=== PATIENT | male | born 1965 | race Caucasian/White ===

== ENCOUNTER 2020-05-31 14:38 | Inpatient (IN) | payer MEDICAID ==
[~2020-05-31] VITALS: Ht 172.7 cm; Wt 94.0 kg
[2020-05-31 15:03] LABS: GLUCOSE,POINT OF CARE 105 MG/DL (70-110)
[2020-05-31] MEDS ORDERED: ONDANSETRON HCL 4 MG/2 ML VIAL IVP ONE (15:15)
[2020-05-31] MEDS ORDERED: LORazepam 2 MG/ML VIAL IVP ONE ×2 (15:15→19:45)
[2020-05-31] MEDS ORDERED: SODIUM CHLORIDE 0.9% 1,000 ML IV ONE ×3 (15:15→21:30)
[2020-05-31 16:13] LABS: BASOPHILS % (AUTO) 0.4 % (0.0-2.0); EOSINOPHILS % (AUTO) 0 % (1.0-6.0); HEMATOCRIT 41.2 % (41-53); HEMOGLOBIN 13.9 g/dL (13.5-17.5); LYMPHOCYTES # (AUTO) 0.6 K/uL (1.0-4.8); LYMPHOCYTES % (AUTO) 18.9 % (22.0-44.0); MEAN CORPUSCULAR HEMOGLOBIN 31.8 pg (26.0-34.0); MEAN CORPUSCULAR HGB CONC 33.7 G/dL (31.0-37.0); MEAN CORPUSCULAR VOLUME 94 fL (80-100); MONOCYTES # (AUTO) 0.2 K/uL (0.1-1.0); MONOCYTES % (AUTO) 7.6 % (2.0-9.0); NEUTROPHILS # (AUTO) 2.3 K/uL (1.8-7.7); NEUTROPHILS % (AUTO) 73.1 % (40.0-70.0); RED BLOOD CELL COUNT(AUTO) 4.37 MIL/uL (4.50-5.90); RED CELL DISTRIBUTION WIDTH 14.5 % (11.5-14.5)
[2020-05-31 16:22] LABS: ANION GAP 18 mmol/L (8-16); CALCIUM, TOTAL 9.4 mg/dL (8.8-10.5); CARBON DIOXIDE 20 mmol/L (22-29); CHLORIDE 100 mmol/L (98-107); CREATININE 0.98 mg/dL (0.60-1.30); GLOMERULAR FILTR. RATE CALC > 60 mL/min (>60); GLUCOSE,RANDOM 117 mg/dL (70-110); POTASSIUM 4.7 mmol/L (3.5-5.1); SODIUM SERUM 138 mmol/L (136-145); UREA NITROGEN, BLOOD 16 mg/dL (7-18)
[2020-05-31 16:24] LABS: MAGNESIUM 1.8 mg/dL (1.80-2.40); PHOSPHORUS 3.1 mg/dL (2.5-4.9)
[2020-05-31 16:43] LABS: PLATELET COUNT (AUTO) 55 K/uL (150-450)
[2020-05-31 16:46] LABS: ALANINE AMINOTRANSFERASE 56 U/L (12-78); ALBUMIN 3.7 g/dL (3.4-5.0); ALKALINE PHOSPHATASE 145 U/L (46-116); ASPARTATE AMINOTRANSFERASE 120 U/L (15-37); BILIRUBIN,TOTAL 2.2 mg/dL (0.1-1.0); CREATINE KINASE, TOTAL ONLY 240 U/L (39-308); TOTAL PROTEIN, SERUM 7.6 g/dL (6.4-8.2)
[2020-05-31 16:49] LABS: B-TYPE NATRIURETIC PEPTIDE 28 pg/mL (0-100)
[2020-05-31] MEDS ORDERED: ChlordiazePOXIDE HCL 25 MG CAPSULE PO ONE (17:00)
[2020-05-31] MEDS ORDERED: LevETIRAcetam 1,000 MG in DEXTROSE 5%-WATER 100 ML IV ONE (19:45)
[2020-05-31 19:50] LABS: GLUCOSE,POINT OF CARE 128 MG/DL (70-110)
[2020-05-31] MEDS ORDERED: ONDANSETRON HCL 4 MG/2 ML VIAL IVP PRN ×2 (20:00→21:30)
[2020-05-31] MEDS ORDERED: 0.9% SODIUM CHLORIDE 10 ML SYRINGE IVP PRN (20:00)
[2020-05-31] MEDS ORDERED: ACETAMINOPHEN 325 MG TABLET PO PRN ×2 (20:00→21:30)
[2020-05-31 20:56] LABS: COVID AG,FIA SOURCE NASOPHARYNGEAL
[2020-05-31] MEDS ORDERED: LORazepam 2 MG/ML VIAL IVP PRN (21:30)
[2020-05-31] MEDS ORDERED: ZOLPIDEM TARTRATE 5 MG TABLET PO PRN (21:30)
[2020-05-31] MEDS ORDERED: HYDROCODONE/ACETAMINOPHEN 5-325 MG TABLET PO PRN (21:30)
[2020-05-31] MEDS ORDERED: BISACODYL 10 MG RECTAL RECTAL SUPPOSITORY PR PRN (21:30)
[2020-05-31] MEDS ORDERED: MAGNESIUM HYDROXIDE SUSPENSION 30 ML UDCUP PO PRN (21:30)
[2020-05-31] MEDS ORDERED: DEXTROSE 50%-WATER 25 GM/50 ML SYRINGE IVP PRN (21:30)
[2020-05-31] MEDS ORDERED: MORPHINE SULFATE 2 MG/ML SYRINGE IVP PRN (21:30)
[2020-05-31 21:58] VITALS: BP 144/78
[2020-06-01 00:09] VITALS: BP 125/70
[2020-06-01] MEDS: HEPARIN SODIUM,PORCINE 5,000 UNITS/ML VIAL SQ SCH ×3 (00:30→15:05)
[2020-06-01] MEDS: ChlordiazePOXIDE HCL 25 MG CAPSULE PO SCH ×4 (00:30→18:15)
[2020-06-01 01:09] LABS: GLUCOMETER DEV NAME(LOC) 5N.3; GLUCOSE,POINT OF CARE 104 MG/DL (70-110)
[2020-06-01 03:50] VITALS: BP 131/75
[2020-06-01 06:54] LABS: BASOPHILS % (AUTO) 0.4 % (0.0-2.0); EOSINOPHILS % (AUTO) 0.1 % (1.0-6.0); HEMATOCRIT 34.8 % (41-53); LYMPHOCYTES % (AUTO) 30.4 % (22.0-44.0); MEAN CORPUSCULAR HGB CONC 34.6 G/dL (31.0-37.0); MEAN CORPUSCULAR VOLUME 93 fL (80-100); MONOCYTES # (AUTO) 0.4 K/uL (0.1-1.0); MONOCYTES % (AUTO) 10.9 % (2.0-9.0); NEUTROPHILS # (AUTO) 1.9 K/uL (1.8-7.7); NEUTROPHILS % (AUTO) 58.2 % (40.0-70.0); PLATELET COUNT (AUTO) 40 K/uL (150-450); RED BLOOD CELL COUNT(AUTO) 3.76 MIL/uL (4.50-5.90); RED CELL DISTRIBUTION WIDTH 14.4 % (11.5-14.5)
[2020-06-01 07:25] LABS: ALANINE AMINOTRANSFERASE 46 U/L (12-78); ALBUMIN 3.1 g/dL (3.4-5.0); ALKALINE PHOSPHATASE 117 U/L (46-116); ANION GAP 10 mmol/L (8-16); ASPARTATE AMINOTRANSFERASE 92 U/L (15-37); BILIRUBIN,TOTAL 2.2 mg/dL (0.1-1.0); CALCIUM, TOTAL 8.4 mg/dL (8.8-10.5); CARBON DIOXIDE 25 mmol/L (22-29); CHLORIDE 100 mmol/L (98-107); CREATININE 0.82 mg/dL (0.60-1.30); GLOMERULAR FILTR. RATE CALC > 60 mL/min (>60); GLUCOSE,RANDOM 82 mg/dL (70-110); POTASSIUM 3.7 mmol/L (3.5-5.1); SODIUM SERUM 135 mmol/L (136-145); TOTAL PROTEIN, SERUM 6.3 g/dL (6.4-8.2); UREA NITROGEN, BLOOD 15 mg/dL (7-18)
[2020-06-01 07:27] VITALS: BP 126/68
[2020-06-01] MEDS: MULTIVITAMINS, THERAPEUTIC TABLET PO SCH (08:13)
[2020-06-01] MEDS: LevETIRAcetam 500 MG in DEXTROSE 5%-WATER 100 ML IV SCH ×2 (08:13→20:11)
[2020-06-01] MEDS: FOLIC ACID 1 MG TABLET PO SCH (08:13)
[2020-06-01] MEDS: THIAMINE 100 MG TABLET PO SCH (08:13)
[2020-06-01 11:14] VITALS: BP_SYST 120; BP_SYST 146; BP_DIAS 56; BP_DIAS 80
[2020-06-01 15:50] VITALS: BP 138/83
[2020-06-01 19:14] LABS: GLUCOMETER DEV NAME(LOC) 5N.1B; GLUCOSE,POINT OF CARE 75 MG/DL (70-110)
[2020-06-01 19:44] VITALS: BP 122/72
[2020-06-01] MEDS: INSULIN LISPRO 100 UNITS/ML SQ PRN (21:26)
[2020-06-02] VITALS (7 sets, daily range): BP systolic 119–147; BP diastolic 62–82
[2020-06-02] MEDS: ChlordiazePOXIDE HCL 25 MG CAPSULE PO SCH ×2 (00:34→06:15)
[2020-06-02] MEDS: HEPARIN SODIUM,PORCINE 5,000 UNITS/ML VIAL SQ SCH ×3 (00:34→15:55)
[2020-06-02 07:46] LABS: GLUCOMETER DEV NAME(LOC) 5N.1B; GLUCOSE,POINT OF CARE 109 MG/DL (70-110)
[2020-06-02 07:46] LABS: GLUCOMETER DEV NAME(LOC) 5N.1B; GLUCOSE,POINT OF CARE 132 MG/DL (70-110)
[2020-06-02] MEDS: LevETIRAcetam 500 MG in DEXTROSE 5%-WATER 100 ML IV SCH (08:23)
[2020-06-02] MEDS: THIAMINE 100 MG TABLET PO SCH (08:24)
[2020-06-02] MEDS: FOLIC ACID 1 MG TABLET PO SCH (08:24)
[2020-06-02] MEDS: MULTIVITAMINS, THERAPEUTIC TABLET PO SCH (08:24)
[2020-06-02] MEDS: INSULIN LISPRO 100 UNITS/ML SQ PRN ×2 (12:20→20:49)
[2020-06-02] MEDS: LevETIRAcetam 500 MG TABLET PO SCH (20:39)
[2020-06-02 23:36] LABS: GLUCOMETER DEV NAME(LOC) 6N.2; GLUCOSE,POINT OF CARE 108 MG/DL (70-110)
[2020-06-02 23:36] LABS: GLUCOMETER DEV NAME(LOC) 6N.2; GLUCOSE,POINT OF CARE 173 MG/DL (70-110)
[2020-06-03 00:11] VITALS: BP 131/76
[2020-06-03] MEDS: HEPARIN SODIUM,PORCINE 5,000 UNITS/ML VIAL SQ SCH ×3 (00:21→16:00)
[2020-06-03 04:42] VITALS: BP 129/70
[2020-06-03] MEDS: INSULIN LISPRO 100 UNITS/ML SQ PRN ×2 (05:56→12:20)
[2020-06-03 07:48] LABS: GLUCOMETER DEV NAME(LOC) 5N.3; GLUCOSE,POINT OF CARE 85 MG/DL (70-110)
[2020-06-03 07:48] LABS: GLUCOMETER DEV NAME(LOC) 5N.3; GLUCOSE,POINT OF CARE 90 MG/DL (70-110)
[2020-06-03 07:48] LABS: GLUCOMETER DEV NAME(LOC) 5N.3; GLUCOSE,POINT OF CARE 137 MG/DL (70-110)
[2020-06-03] MEDS: MULTIVITAMINS, THERAPEUTIC TABLET PO SCH (07:56)
[2020-06-03] MEDS: THIAMINE 100 MG TABLET PO SCH (07:56)
[2020-06-03] MEDS: FOLIC ACID 1 MG TABLET PO SCH (07:56)
[2020-06-03] MEDS: LevETIRAcetam 500 MG TABLET PO SCH (07:56)
[2020-06-03 08:10] VITALS: BP 155/108
[2020-06-03 08:17] LABS: GLUCOMETER DEV NAME(LOC) 6N.1; GLUCOSE,POINT OF CARE 122 MG/DL (70-110)
[2020-06-03 09:15] VITALS: BP 121/72
[2020-06-03 12:54] LABS: GLUCOMETER DEV NAME(LOC) 6N.2; GLUCOSE,POINT OF CARE 138 MG/DL (70-110)
[2020-06-03] MEDS ORDERED: LEVE250T PO (15:17)
[2020-06-03] MEDS ORDERED: MULT-711 PO (15:19)
[2020-06-03] MEDS ORDERED: METF-960 PO (15:19)
[2020-06-04] MEDS ORDERED: MetFORMIN HCL 500 MG TABLET PO SCH (08:00)
== END 2020-06-03 17:25 | disposition home or self-care (01) | DRG 53 ==
LOC: EMS 14:38 → 5N 20:00 → 6N 06-02 17:00
PROVIDERS: ADMIT Hospitalist; ATTEND Hospitalist
DX: R56.9 Unspecified convulsions (principal); E11.9 Type 2 diabetes mellitus without complications; I10 Essential (primary) hypertension; U07.1 COVID-19; J12.82 Pneumonia due to coronavirus disease 2019; F10.239 Alcohol dependence with withdrawal, unspecified; Z59.0 Homelessness
CPT/HCPCS: 70450; 83735; 84100; 87426; 93005; 99291; G0480; J0712; J1644; J2060; J2405; J7030; J7060